=== PATIENT | male | born 1965 | race Caucasian/White ===

== ENCOUNTER → 2016-10-31 | Outpatient (CLI) | payer OTHER ==
[~2016-10-31] VITALS: Ht 177.8 cm; Wt 97.5 kg
[~2016-10-31] MED LIST: ALDACTONE25 MG PO; ALPRAZOLAM0.25 M2 PO; ATORVASTATIN CA80 MG PO; AZITHROMYCIN250 MG1 PO; CARVEDILOL3.125 MG PO; CELECOXIB200 MG PO; CEPHALEXIN500 M1 PO; CLOPIDOGREL75 MG PO; COREG3.125 M1 PO; COREG6.25 M1 PO; COUMADIN6 MG PO; COZAAR25 MG PO; DAILY VALUE1 EACH PO; ERGOCALCIF50000 UNIT PO; FUROSEMIDE40 MG PO; FUROSEMIDE80 MG PO; GLIPIZIDE XL10 MG PO; GLIPIZIDE10 MG PO; GLUCOPHAGE1000 MG PO; GLUCOPHAGE500 MG PO; GUAIFENESIN WI120 M1 PO; IRON325 M1 PO; KEFLEX500 MG PO; LANTUS 3 M100 UNITS1 SC; LASIX80 MG PO; LEVAQUIN750 MG PO; LEVEMIR FL100 UNIT/1 SC; LEVEMIR100 UNIT/2 SC; LEVOFLOXACIN750 MG PO; LISINOPRIL10 MG PO; LISINOPRIL20 MG PO; LORATADINE10 M2 PO; LYRICA50 MG PO; NOVOLOG PE100 UNITS/ SC; NOVOLOG100 UNIT/1 SC; OXAYDO5 MG PO; PAIN & FEVER500 MG PO; PERCOCET 5/31 TABLET PO; PLAVIX75 MG PO; PRAVASTATIN SOD40 MG PO; PRINIVIL5 MG PO; PROAIR RESPICL90 MCG IH; PROMETHAZINE HC25 M1 PO; ROXICODONE5 MG PO; SPIRONOLACTONE25 MG PO; TRADJENTA5 MG PO; WARFARIN SODIUM6 MG PO; XANAX0.25 MG PO; [UNRECOGNIZED DRUG - REMARK] PO
[2016-10-31 10:20] LABS: POINT-OF-CARE METER ID UU13113694
== END | disposition home or self-care (01) ==
LOC: AMB 09:42
PROVIDERS: Internal Medicine Gastroenterology
PROC: 0DJDXZZ Inspection of Lower Intestinal Tract, External Approach (ICD-10-PCS; principal; 2016-10-31)
DX: Z12.11 Encounter for screening for malignant neoplasm of colon (principal); Z53.09 Procedure and treatment not carried out because of other contraindication; Z79.01 Long term (current) use of anticoagulants
CPT/HCPCS: 80048; 82948; J2250; J3010

== ENCOUNTER → 2016-11-28 | Outpatient (CLI) | payer OTHER ==
[~2016-11-28] VITALS: Ht 177.8 cm; Wt 98.9 kg
[2016-11-28 12:28] LABS: POINT-OF-CARE METER ID UU13113694
[2016-11-28 14:00] LABS: POINT-OF-CARE METER ID UU13113819
== END | disposition home or self-care (01) ==
LOC: AMB 11:34
PROVIDERS: Internal Medicine Gastroenterology
DX: Z12.11 Encounter for screening for malignant neoplasm of colon (principal); D12.5 Benign neoplasm of sigmoid colon; D12.2 Benign neoplasm of ascending colon; D12.3 Benign neoplasm of transverse colon; K63.5 Polyp of colon; I25.10 Atherosclerotic heart disease of native coronary artery without angina pectoris; I25.2 Old myocardial infarction; E11.40 Type 2 diabetes mellitus with diabetic neuropathy, unspecified; Z79.899 Other long term (current) drug therapy; E78.5 Hyperlipidemia, unspecified; E66.09 Other obesity due to excess calories; Z68.31 Body mass index [BMI] 31.0-31.9, adult; E55.9 Vitamin D deficiency, unspecified; Z80.8 Family history of malignant neoplasm of other organs or systems; Z79.4 Long term (current) use of insulin; Z88.6 Allergy status to analgesic agent
CPT/HCPCS: 82948; 88305

== ENCOUNTER 2016-12-26 14:35 | Inpatient (IN) | payer OTHER ==
[~2016-12-26] VITALS: Ht 177.8 cm; Wt 98.8 kg
[2016-12-26 15:30] LABS: HEMATOCRIT 32.6 % (38.0-50.0); MCH 28.5 PG (29.0-34.0); MCV 81.5 FL (86-99); MEAN PLAT.VOLUME 9.8 uM^3 (9.0-12.4); PLATELET COUNT 192 K/uL (156-360); RBC DIS.WIDTH-CV 13.2 % (11.8-14.6); RBC DIS.WIDTH-SD 39.1 % (39-53)
[2016-12-26 15:40] LABS: CHLORIDE 101 mEq/L (99-109); POTASSIUM 4.8 mEq/L (3.7-5.4); SODIUM 135 mEq/L (136-147)
[2016-12-26 15:42] LABS: GLUCOSE 311 mg/dL (70-99)
[2016-12-26 15:43] LABS: ANION GAP 11 MEQ/L (2-14)
[2016-12-26 15:46] LABS: GFR ESTIMATE (CALCULATED) 32 mL/min/
[2016-12-26 15:47] LABS: UREA NITROGEN (BUN) 57 mg/dL (9-23)
[2016-12-26 17:04] LABS: TROP-I INTERPRETATION NEGATIVE; TROPONIN-I 0.02 ng/mL (0.0-0.30)
[2016-12-26 19:58] LABS: TOTAL BILIRUBIN 0.5 mg/dL (0.0-1.0)
[2016-12-26 19:59] LABS: ALKALINE PHOSPHATASE 82 IU/L (3-129)
[2016-12-26 20:02] LABS: DIRECT BILIRUBIN 0.2 mg/dL (0.0-0.3); URIC ACID 9.1 mg/dL (3.1-9.2)
[2016-12-26 20:12] LABS: ADD MIUA? YES; BILIRUBIN NEGATIVE; BLOOD SMALL; COLOR STRAW ((YELLOW)); GLUCOSE (STRIP) >=500; KETONES NEGATIVE; LEUKOCYTES NEGATIVE; NITRITE NEGATIVE; PROTEIN (STRIP) 30; SPECIFIC GRAVITY 1.009 (1.000-1.030); UROBILINOGEN 0.2 MG/DL (0.2-1.0)
[2016-12-26 20:17] LABS: BACTERIA NONE SEEN /HPF; EPITHELIAL CELLS RARE /HPF; MUCUS TRACE /LPF; RED BLOOD CELLS 0-5 /HPF (0-5); WHITE BLOOD CELLS NONE SEEN /HPF (0-5)
[2016-12-26 20:29] LABS: HDL CHOLESTEROL 26 MG/DL (Desirable>=40); LDL CHOLESTEROL 55 mg/dL (Desirable<100); NON-HDL CHOLESTEROL 93 mg/dL (Desirable<160); SAMPLE HEMOLYSIS CHECK 0; SAMPLE ICTERIC CHECK 0; SAMPLE LIPEMIA CHECK 1; TOTAL CHOLESTEROL 119 mg/dL (Desirable<200); TRIGLYCERIDES 190 MG/DL (Normal: <150)
[2016-12-26 21:26] VITALS: BP 138/69
[2016-12-26 23:11] LABS: Estimated Average Glucose 263 mg/dL (70-123); HEMOGLOBIN A1c (GLYCOHEMOGLOB) 10.8 % HGB (Below 5.7)
[2016-12-26 23:58] VITALS: BP 117/73
[2016-12-27 04:18] VITALS: BP 104/65
[2016-12-27 06:16] LABS: ANION GAP 7 MEQ/L (2-14); CHLORIDE 105 MEQ/L (99-109); GFR ESTIMATE (CALCULATED) 48 mL/min/; GLUCOSE 272 mg/dL (70-99); IRON 51 MCG/DL (35-150); POTASSIUM 4.4 MEQ/L (3.7-5.4); SAMPLE HEMOLYSIS CHECK 0; SAMPLE ICTERIC CHECK 0; SAMPLE LIPEMIA CHECK 0; SODIUM 137 MEQ/L (136-147); UREA NITROGEN (BUN) 47 mg/dL (9-23)
[2016-12-27 06:21] LABS: HEMATOCRIT 29.1 % (38.0-50.0); MCH 28.5 PG (29.0-34.0); MCHC 33.7 G/DL (30.0-36.0); MCV 84.6 FL (86-99); PLATELET COUNT 161 K/uL (156-360); RBC DIS.WIDTH-CV 13.4 % (11.8-14.6); RBC DIS.WIDTH-SD 41.5 % (39-53); RED BLOOD COUNT 3.44 M/uL (4.00-5.50)
[2016-12-27 06:26] LABS: WHITE BLOOD COUNT 11.7 K/uL (4.1-10.2)
[2016-12-27 08:06] LABS: INTERNAL CONTROL VALID? YES
[2016-12-27 08:18] LABS: POINT-OF-CARE METER ID UU14174225
[2016-12-27 08:43] VITALS: BP 130/77
[2016-12-27 13:15] VITALS: BP 114/65
[2016-12-27 15:33] VITALS: BP 120/77
[2016-12-27 17:28] LABS: POINT-OF-CARE METER ID UU14174225
[2016-12-27 20:00] VITALS: BP 109/56
[2016-12-28] VITALS: BP 100/56
[2016-12-28 04:00] VITALS: BP 131/73
[2016-12-28 07:33] LABS: EOSINOPHIL (%) 1.1 % (0-5); EOSINOPHIL COUNT 0.1 K/uL (0-0.3); HEMATOCRIT 30.2 % (38.0-50.0); IMMATURE GRANULOCYTE (%) 0.3 % (0.0-0.7); INSTRUMENT ABS NEUTROPHIL CT 8.9 K/uL; LYMPHOCYTE COUNT 1.9 K/uL (1.0-2.8); MCHC 32.8 G/DL (30.0-36.0); MCV 85.6 FL (86-99); MEAN PLAT.VOLUME 10.3 uM^3 (9.0-12.4); MONOCYTE (%) 7.4 % (3-12); MONOCYTE COUNT 0.9 K/uL (0-0.8); NEUTROPHIL COUNT 8.9 K/uL (1.8-6.4); PLATELET COUNT 181 K/uL (156-360); RBC DIS.WIDTH-CV 13.5 % (11.8-14.6); RED BLOOD COUNT 3.53 M/uL (4.00-5.50); WHITE BLOOD COUNT 11.8 K/uL (4.1-10.2)
[2016-12-28 07:58] VITALS: BP 124/75
[2016-12-28 08:01] LABS: ANION GAP 9 MEQ/L (2-14); CHLORIDE 104 MEQ/L (99-109); GFR ESTIMATE (CALCULATED) 52 mL/min/; GLUCOSE 195 mg/dL (70-99); POTASSIUM 4.4 MEQ/L (3.7-5.4); SAMPLE HEMOLYSIS CHECK 0; SAMPLE ICTERIC CHECK 0; SAMPLE LIPEMIA CHECK 0; SODIUM 137 MEQ/L (136-147); UREA NITROGEN (BUN) 35 mg/dL (9-23)
[2016-12-28 12:04] LABS: POINT-OF-CARE METER ID UU14188625
[2016-12-28 14:54] VITALS: BP 121/78
[2016-12-28 16:52] LABS: POINT-OF-CARE METER ID UU14188625
[2016-12-28 20:00] VITALS: BP 121/78
[2016-12-29] VITALS: BP 122/78
[2016-12-29 07:36] LABS: ANION GAP 8 MEQ/L (2-14); CHLORIDE 104 MEQ/L (99-109); GFR ESTIMATE (CALCULATED) > 59 mL/min/; GLUCOSE 228 mg/dL (70-99); POTASSIUM 4.6 MEQ/L (3.7-5.4); SAMPLE HEMOLYSIS CHECK 0; SAMPLE ICTERIC CHECK 0; SAMPLE LIPEMIA CHECK 0; SODIUM 138 MEQ/L (136-147); UREA NITROGEN (BUN) 31 mg/dL (9-23)
[2016-12-29] MEDS ORDERED: LASIX40 MG PO (11:02)
[2016-12-29] MEDS ORDERED: AUGMENTIN875 MG PO (11:02)
[2016-12-29 11:23] LABS: D-DIMER ELISA 0.68 mg/L FEU (< 0.57)
[2016-12-29 15:02] VITALS: BP 116/72
[2016-12-29] MEDS ORDERED: XARELTO1 EACH PO ×2 (15:45→16:26)
[2016-12-29 15:51] LABS: HEMATOCRIT 31.5 % (38.0-50.0)
== END 2016-12-29 17:33 | disposition home or self-care (01) | DRG 871 ==
LOC: EME 14:35 → 5SOUTH 18:49 → EDOF 18:49 → 5SOUTH 21:16
PROVIDERS: Hospitalist; Internal Medicine; Nurse Practitioner Adult Health; Physician Assistant Medical
DX: A41.9 Sepsis, unspecified organism (principal); J18.9 Pneumonia, unspecified organism; N17.9 Acute kidney failure, unspecified; I95.1 Orthostatic hypotension; I82.412 Acute embolism and thrombosis of left femoral vein; I13.0 Hypertensive heart and chronic kidney disease with heart failure and stage 1 through stage 4 chronic kidney disease, or unspecified chronic kidney disease; I50.9 Heart failure, unspecified; E11.21 Type 2 diabetes mellitus with diabetic nephropathy; E11.22 Type 2 diabetes mellitus with diabetic chronic kidney disease; N18.3 Chronic kidney disease, stage 3 (moderate); J44.9 Chronic obstructive pulmonary disease, unspecified; E11.65 Type 2 diabetes mellitus with hyperglycemia; E11.319 Type 2 diabetes mellitus with unspecified diabetic retinopathy without macular edema; E11.42 Type 2 diabetes mellitus with diabetic polyneuropathy; I25.5 Ischemic cardiomyopathy; I25.10 Atherosclerotic heart disease of native coronary artery without angina pectoris; E78.5 Hyperlipidemia, unspecified; D64.9 Anemia, unspecified; H10.9 Unspecified conjunctivitis; E86.0 Dehydration; M47.892 Other spondylosis, cervical region; I25.2 Old myocardial infarction; Z95.1 Presence of aortocoronary bypass graft; Z79.4 Long term (current) use of insulin
CPT/HCPCS: 70450; 70490; 70551; 71020; 71250; 71275; 72141; 74176; 80048; 80061; 80076; 81003; 82436; 82607; 82948; 83036; 83540; 83605; 83935; 84133; 84300; 84443; 84466; 84484; 84550; 85014; 85018; 85025; 85027; 85379; 87040; 87070; 87205; 87449; 92610 GN; 93005; 93880; 93970; 94799; 99202; 99281; 99285; J0456; J0696; J1644; J1815; J1956; J2060; J7030; J7040; J7050; S0030

== ENCOUNTER 2017-02-17 18:59 | Inpatient (IN) | payer OTHER ==
[~2017-02-17] VITALS: Ht 177.8 cm; Wt 95.4 kg
[~2017-02-17 18:59] MED LIST changes: +AUGMENTIN875 MG PO; +LASIX40 MG PO; +XARELTO1 EACH PO
[2017-02-17 19:18] LABS: EOSINOPHIL (%) 1.7 % (0-5); EOSINOPHIL COUNT 0.2 K/uL (0-0.3); HEMATOCRIT 33.3 % (38.0-50.0); IMMATURE GRANULOCYTE (%) 0.3 % (0.0-0.7); INSTRUMENT ABS NEUTROPHIL CT 5.9 K/uL; LYMPHOCYTE COUNT 1.9 K/uL (1.0-2.8); MCH 28.2 PG (29.0-34.0); MCHC 33.9 G/DL (30.0-36.0); MEAN PLAT.VOLUME 10.2 uM^3 (9.0-12.4); MONOCYTE (%) 6.7 % (3-12); MONOCYTE COUNT 0.6 K/uL (0-0.8); NEUTROPHIL (%) 68.6 % (45-76); NEUTROPHIL COUNT 5.9 K/uL (1.8-6.4); PLATELET COUNT 162 K/uL (156-360); RBC DIS.WIDTH-CV 13.2 % (11.8-14.6); RBC DIS.WIDTH-SD 39.8 % (39-53); RED BLOOD COUNT 4.01 M/uL (4.00-5.50); WHITE BLOOD COUNT 8.6 K/uL (4.1-10.2)
[2017-02-17 19:24] LABS: POINT-OF-CARE METER ID UU14100415
[2017-02-17 19:26] LABS: CHLORIDE 102 mEq/L (99-109); POTASSIUM 4.2 mEq/L (3.7-5.4); SODIUM 135 mEq/L (136-147)
[2017-02-17 19:28] LABS: GLUCOSE 351 mg/dL (70-99)
[2017-02-17 19:29] LABS: ANION GAP 10 MEQ/L (2-14)
[2017-02-17 19:32] LABS: GFR ESTIMATE (CALCULATED) 34 mL/min/
[2017-02-17 19:33] LABS: UREA NITROGEN (BUN) 43 mg/dL (9-23)
[2017-02-17 19:38] LABS: TROP-I INTERPRETATION NEGATIVE; TROPONIN-I < 0.01 ng/mL (0.0-0.30)
[2017-02-18] VITALS (9 sets, daily range): BP systolic 82–158; BP diastolic 44–99
[2017-02-18 08:07] LABS: MCH 29.1 PG (29.0-34.0); MCHC 34.4 G/DL (30.0-36.0); MCV 84.7 FL (86-99); MEAN PLAT.VOLUME 10.5 uM^3 (9.0-12.4); PLATELET COUNT 149 K/uL (156-360); RBC DIS.WIDTH-CV 13.4 % (11.8-14.6); RBC DIS.WIDTH-SD 41.7 % (39-53); RED BLOOD COUNT 3.78 M/uL (4.00-5.50); WHITE BLOOD COUNT 9.4 K/uL (4.1-10.2)
[2017-02-18 08:29] LABS: ANION GAP 9 MEQ/L (2-14); CHLORIDE 103 MEQ/L (99-109); GFR ESTIMATE (CALCULATED) 42 mL/min/; GLUCOSE 313 mg/dL (70-99); POTASSIUM 4.6 MEQ/L (3.7-5.4); SAMPLE HEMOLYSIS CHECK 0; SAMPLE ICTERIC CHECK 0; SAMPLE LIPEMIA CHECK 0; SODIUM 136 MEQ/L (136-147); UREA NITROGEN (BUN) 45 mg/dL (9-23)
[2017-02-19 04:19] VITALS: BP 86/67
[2017-02-19 07:32] LABS: ADD MIUA? NO; BILIRUBIN NEGATIVE; BLOOD NEGATIVE; COLOR YELLOW ((YELLOW)); GLUCOSE (STRIP) >=500; KETONES NEGATIVE; LEUKOCYTES NEGATIVE; NITRITE NEGATIVE; PROTEIN (STRIP) 30; SPECIFIC GRAVITY 1.017 (1.000-1.030); UROBILINOGEN 0.2 MG/DL (0.2-1.0)
[2017-02-19 08:11] LABS: EOSINOPHIL (%) 1.6 % (0-5); EOSINOPHIL COUNT 0.1 K/uL (0-0.3); HEMATOCRIT 32.2 % (38.0-50.0); IMMATURE GRANULOCYTE (%) 0.3 % (0.0-0.7); INSTRUMENT ABS NEUTROPHIL CT 4.7 K/uL; LYMPHOCYTE COUNT 1.9 K/uL (1.0-2.8); MCHC 33.9 G/DL (30.0-36.0); MCV 85.6 FL (86-99); MEAN PLAT.VOLUME 10.9 uM^3 (9.0-12.4); MONOCYTE (%) 9.2 % (3-12); MONOCYTE COUNT 0.7 K/uL (0-0.8); NEUTROPHIL (%) 63.4 % (45-76); NEUTROPHIL COUNT 4.7 K/uL (1.8-6.4); PLATELET COUNT 152 K/uL (156-360); RBC DIS.WIDTH-CV 13.4 % (11.8-14.6); RBC DIS.WIDTH-SD 41.7 % (39-53); RED BLOOD COUNT 3.76 M/uL (4.00-5.50); WHITE BLOOD COUNT 7.4 K/uL (4.1-10.2)
[2017-02-19 08:18] VITALS: BP 127/84
[2017-02-19 08:31] LABS: ALKALINE PHOSPHATASE 91 IU/L (3-129); ANION GAP 9 MEQ/L (2-14); CHLORIDE 101 MEQ/L (99-109); DIRECT BILIRUBIN 0.1 mg/dL (0.0-0.3); GFR ESTIMATE (CALCULATED) 48 mL/min/; GLUCOSE 217 mg/dL (70-99); POTASSIUM 4.5 MEQ/L (3.7-5.4); SAMPLE HEMOLYSIS CHECK 0; SAMPLE ICTERIC CHECK 0; SAMPLE LIPEMIA CHECK 0; SODIUM 136 MEQ/L (136-147); TOTAL BILIRUBIN 0.4 MG/DL (0.0-1.0); UREA NITROGEN (BUN) 46 mg/dL (9-23)
[2017-02-19 11:23] VITALS: BP 124/80
[2017-02-19 15:27] VITALS: BP 114/70
[2017-02-19 16:36] LABS: POINT-OF-CARE METER ID UU14149397
[2017-02-19 19:33] VITALS: BP 105/56
[2017-02-19 23:37] VITALS: BP 131/73
[2017-02-20 04:30] VITALS: BP 127/76
[2017-02-20 06:45] LABS: EOSINOPHIL COUNT 0.2 K/uL (0-0.3); HEMATOCRIT 31.7 % (38.0-50.0); IMMATURE GRANULOCYTE (%) 0.5 % (0.0-0.7); LYMPHOCYTE COUNT 2.4 K/uL (1.0-2.8); MCH 29.5 PG (29.0-34.0); MCHC 34.4 G/DL (30.0-36.0); MCV 85.7 FL (86-99); MEAN PLAT.VOLUME 10.4 uM^3 (9.0-12.4); MONOCYTE (%) 10.4 % (3-12); MONOCYTE COUNT 0.9 K/uL (0-0.8); NEUTROPHIL (%) 58.6 % (45-76); PLATELET COUNT 166 K/uL (156-360); RBC DIS.WIDTH-CV 13.4 % (11.8-14.6); WHITE BLOOD COUNT 8.6 K/uL (4.1-10.2)
[2017-02-20 07:01] LABS: POINT-OF-CARE METER ID UU14188577
[2017-02-20 07:04] LABS: ALKALINE PHOSPHATASE 80 IU/L (3-129); ANION GAP 9 MEQ/L (2-14); CHLORIDE 103 MEQ/L (99-109); GFR ESTIMATE (CALCULATED) 57 mL/min/; GLUCOSE 156 mg/dL (70-99); POTASSIUM 4.4 MEQ/L (3.7-5.4); SAMPLE HEMOLYSIS CHECK 0; SAMPLE ICTERIC CHECK 0; SAMPLE LIPEMIA CHECK 0; SODIUM 138 MEQ/L (136-147); TOTAL BILIRUBIN 0.4 MG/DL (0.0-1.0); UREA NITROGEN (BUN) 41 mg/dL (9-23)
[2017-02-20 08:24] VITALS: BP 124/81
[2017-02-20] MEDS ORDERED: EXTRA STRENGTH500 M1 PO (09:28)
[2017-02-20] MEDS ORDERED: ONCE DAILY1 EACH PO (09:32)
[2017-02-20] MEDS ORDERED: LEVEMIR100 UNIT/2 SC (11:51)
[2017-02-20] MEDS ORDERED: LIDOCAINE700 MG TD (11:51)
[2017-02-20] MEDS ORDERED: PANTOPRAZOLE SO40 MG PO (11:51)
[2017-02-20 11:58] VITALS: BP 129/77
[2017-02-20 12:07] LABS: POINT-OF-CARE METER ID UU14149397
== END 2017-02-20 14:19 | disposition home or self-care (01) | DRG 683 ==
LOC: 3EAST → EME 18:59 → EDOF 23:34 → 3EAST 02-18 00:46
PROVIDERS: Emergency Medicine; Hospitalist; Internal Medicine; Physician Assistant
PROC: 0HQ0XZZ Repair Scalp Skin, External Approach (ICD-10-PCS; principal; 2017-02-17)
DX: N17.9 Acute kidney failure, unspecified (principal); I95.1 Orthostatic hypotension; E11.319 Type 2 diabetes mellitus with unspecified diabetic retinopathy without macular edema; E11.42 Type 2 diabetes mellitus with diabetic polyneuropathy; E11.21 Type 2 diabetes mellitus with diabetic nephropathy; E11.65 Type 2 diabetes mellitus with hyperglycemia; E78.5 Hyperlipidemia, unspecified; I11.0 Hypertensive heart disease with heart failure; I50.9 Heart failure, unspecified; I25.5 Ischemic cardiomyopathy; J44.9 Chronic obstructive pulmonary disease, unspecified; E66.9 Obesity, unspecified; I25.10 Atherosclerotic heart disease of native coronary artery without angina pectoris; F41.9 Anxiety disorder, unspecified; S01.01XA Laceration without foreign body of scalp, initial encounter; S22.42XA Multiple fractures of ribs, left side, initial encounter for closed fracture; W19.XXXA Unspecified fall, initial encounter; Y92.009 Unspecified place in unspecified non-institutional (private) residence as the place of occurrence of the external cause; Z68.30 Body mass index [BMI] 30.0-30.9, adult; Z86.718 Personal history of other venous thrombosis and embolism; I25.2 Old myocardial infarction; Z95.1 Presence of aortocoronary bypass graft; Z79.4 Long term (current) use of insulin; Z79.02 Long term (current) use of antithrombotics/antiplatelets; M50.30 Other cervical disc degeneration, unspecified cervical region
CPT/HCPCS: 36415; 70450; 71020; 71101; 80048; 80053; 80076; 81003; 82272; 82948; 83735; 83880; 84484; 85025; 85027; 87086; 93005; 97530 GO; 99202; 99281; 99285; G0378; J1644; J1815; J2270; J2405; J7120